=== PATIENT | female | born 1985 | race Caucasian/White ===

== ENCOUNTER 2018-10-18 05:23 | Emergency (ER) | payer OTHER | END 2018-10-18 06:58 | disposition home or self-care (01) | LOC: NAV ERS 05:23 | DX: T44.7X1A Poisoning by beta-adrenoreceptor antagonists, accidental (unintentional), initial encounter (principal); I95.1 Orthostatic hypotension; I10 Essential (primary) hypertension; F41.9 Anxiety disorder, unspecified; Z87.891 Personal history of nicotine dependence; Z79.899 Other long term (current) drug therapy | CPT/HCPCS: 93005 ==

== ENCOUNTER 2023-02-02 11:55 | Emergency (ER) | payer OTHER, SELFPAY | END 2023-02-02 12:50 | disposition home or self-care (01) | LOC: NAV ERS 11:55 | DX: O99.512 Diseases of the respiratory system complicating pregnancy, second trimester (principal); J02.0 Streptococcal pharyngitis; Z87.891 Personal history of nicotine dependence; Z3A.26 26 weeks gestation of pregnancy | CPT/HCPCS: 87430; 99283 ==